=== PATIENT | female | born 1990 | race Caucasian/White ===

== ENCOUNTER 2016-12-15 01:09 | Inpatient (IN) | payer MEDICAID ==
[2016-12-15] MEDS ORDERED: LIDOCAINE 1% INJ-PF (10 MG/ML) 30 ML SDV ONE (01:50)
[2016-12-15] MEDS ORDERED: MISOPROSTOL 0.2 MG TABLET ONE (01:50)
[2016-12-15] MEDS ORDERED: OXYTOCIN/NORMAL SALINE 20 UNIT/1,000 ML RTUINJ ONE (01:50)
[2016-12-15 02:10] LABS: ABSOLUTE EOSINOPHILS # (AUTO) 0.1 10^3/uL (0.0-0.6); ABSOLUTE LYMPHOCYTES (AUTO) 2.1 10^3/uL (0.5-4.7); ABSOLUTE MONOCYTES (AUTO) 1.1 10^3/uL (0.1-1.4); ABSOLUTE NEUT (AUTO) 5.6 10^3/uL (1.7-8.2); BASOPHILS % (AUTO) 0.3 % (0-2); EOSINOPHILS % (AUTO) 1.6 % (0-6); HEMOGLOBIN 11.1 g/dL (12.0-15.5); HGB HCT DIFFERENCE 1.3; LYMPHOCYTES % (AUTO) 23.3 % (13-45); MEAN CORPUSCULAR HEMOGLOBIN 29.4 pg (27.0-33.4); MEAN CORPUSCULAR HGB CONC 34.7 g/dL (32.0-36.0); MEAN CORPUSCULAR VOLUME 85 fl (80-97); MONOCYTES % (AUTO) 12.4 % (3-13); RED BLOOD COUNT 3.78 10^6/uL (3.72-5.28); RED CELL DISTRIBUTION WIDTH 15.1 % (11.5-14.0); SEGMENTED NEUTROPHILS % (AUTO) 62.4 % (42-78)
[2016-12-15] MEDS ORDERED: MAGNESIUM HYDROXIDE SUSP 30 ML UDCUP PO PRN (02:14)
[2016-12-15] MEDS ORDERED: PROMETHAZINE HCL INJ 25 MG/1 ML VIAL IV PRN (02:14)
[2016-12-15] MEDS ORDERED: OXYTOCIN/NORMAL SALINE 20 UNIT/1,000 ML RTUINJ IV PRN (02:14)
[2016-12-15] MEDS ORDERED: GLYCERIN/WITCH HAZEL LEAF 1 EACH MED..PAD TP PRN (02:14)
[2016-12-15] MEDS ORDERED: BENZOCAINE/MENTHOL AEROSOL SPRAY 56 ML TOP PRN (02:14)
[2016-12-15] MEDS ORDERED: ACETAMINOPHEN 650 MG SUPP.RECT PR PRN (02:14)
[2016-12-15] MEDS ORDERED: ZOLPIDEM TARTRATE 5 MG TABLET PO PRN (02:14)
[2016-12-15] MEDS ORDERED: DIBUCAINE 1% OINTMENT 28 GM TP PRN (02:14)
[2016-12-15] MEDS ORDERED: PSEUDOEPHEDRINE HCL 30 MG TABLET PO PRN (02:14)
[2016-12-15] MEDS ORDERED: DIPH/PERTUSS(ACELL)/TETANUS VAC/PF 0.5 ML SYR (>=10YO) IM PRN (02:14)
[2016-12-15] MEDS ORDERED: DIPHENHYDRAMINE HCL 25 MG CAPSULE PO PRN (02:14)
[2016-12-15] MEDS ORDERED: NA PHOS,M-B/NA PHOS,DI-BA (ADULT) 133 ML ENEMA PR PRN (02:14)
[2016-12-15] MEDS ORDERED: PROMETHAZINE HCL 25 MG SUPP.RECT PR PRN (02:14)
[2016-12-15] MEDS ORDERED: ACETAMINOPHEN WITH CODEINE #3 TABLET PO PRN ×2 (02:14)
[2016-12-15] MEDS ORDERED: MEASLES,MUMPS&RUBELLA VACC/PF 0.5 ML VIAL SUBCUT PRN (02:14)
[2016-12-15] MEDS ORDERED: PROMETHAZINE HCL 25 MG TABLET PO PRN (02:14)
[2016-12-15 02:34] LABS: URINE BARBITURATES SCREEN NEGATIVE; URINE METHADONE SCREEN NEGATIVE; URINE OPIATES LOW NEGATIVE; URINE PHENCYCLIDINE SCREEN NEGATIVE
[2016-12-15] MEDS ORDERED: IBUPROFEN 800 MG TABLET ONE ×2 (02:46→06:11)
--- NOTE | 2016-12-15 04:08 | Admission Physical ---
Datetime Report Generated by CPN: 12/15/2016 04:08 CURRENT ADMISSION Chief Complaint: Uterine Contractions Indication for Induction: Not Applicable Admit Plan: Admit to Unit; Initiate Labor Protocol ALLERGIES Medication Allergies: No Medication Allergies: No Known Drug Allergies (06/04/2015) Latex: No Latex Allergies OBSTETRICAL HISTORY EDC: 12/13/2016 00:00 : 3 Para: 2 Term: 2 : 0 SAB: 0 IAB: 0 Livin Gestational Diabetes: No Rh Sensitization: No Incompetent Cervix: No YOSEF: No Infertility: No ART Treatment: No Uterine Anomaly: No IUGR: No Hx Previous C/S: No Macrosomia: No Hx Loss/Stillborn: No PIH: No Hx : No Placenta Previa/Abruption: No Depression/PP Depression: No PTL/PROM: No Post Hemorrhage: No Current Procedures: Ultrasound Obstetrical History Comments: 2013 37.5 weeks 2015 40.5 weeks 2016 current SEE RECORDS Alcohol: No Marijuana : No Cocaine: No Other Illicit Drugs: No Cigarettes: Never Smoker. [id number] MEDICAL HISTORY Diabetes: No Blood Transfusion: No Pulmonary Disease (Asthma, TB): No Breast Disease: No Hypertension: No Canoe Inspector Final Surgery: No Heart Disease: No Hosp/Surgery: No Autoimmune Disorder: No Anesthetic Complications: No Kidney Disease: No Abnormal Pap Smear: No Neuro/Epilepsy: No Psychiatric Disorders: No Other Medical Diseases: No Hepatitis/Liver Disease: No Significant Family History: No Varicosities/Phlebitis: No Trauma/Violence : No Thyroid Dysfunction: No INFECTIOUS HISTORY Gonorrhea: No Genital Herpes: No Chlamydia: No Tuberculosis: No Syphilis: No Hepatitis: No HIV/AIDS Exposure: No Rash or Viral Illness: No HPV: No PHYSICAL EXAM General: Normal HEENT: Normal Neurologic: Normal Thyroid: Normal Heart: Normal Lungs: Normal Breast: Normal Back: Normal Abdomen: Normal Genitourinary Exam: Normal Extremities: Normal DTRs: Normal Pelvic Type: Adequate Vital Signs: Reviewed VAGINAL EXAM Dilatation: 8 Effacement: 100 Station: -1 MEMBRANES Pooling: Positive Membranes: Ruptured Amniotic Fluid Color: Meconium, Heavy FETUS A EGA: 40.2 Monitoring: External US FHR- Baseline: 130 Variability: Moderate 6-25bpm Accelerations: 15X15 Decelerations: None FHR Category: Category I Estimated Weight (gm): 3600 Presentation: Vertex PLANS FOR LABOR AND DELIVERY Labor and Delivery: None Pain Management: Epidural Feeding Preference: Breast Benefit of Breast Feed Discussed: Yes Circumcision: N/A INFORMED CONSENT Signature: with User ID: [email or web address]
--- NOTE | 2016-12-15 04:24 | Delivery Summary ---
Del Sum A-C Datetime Report Generated by CPN: 12/15/2016 04:24 DELIVERY PERSONNEL DELIVERY PERSONNEL: [id number] Delivery Doctor:: Anastacia Coon MD Labor and Delivery Nurse:: Usha Whitaker RNgeriatric nurse assistant Nurse:: Alexandria Cartagena RN General Maintenance Engineer/TANK CLEANER: Gabi Blum, TANK CLEANER MATERNAL INFORMATION Delivery Anesthesia: None Medications After Delivery: Pitocin Bolus-Please Comment Meds After Delivery Comment: Pitocin 20 Units/1000ml NSS Estimated Blood Loss (ml): 200 Maternal Complications: Precipitous Labor (<3hrs) Provider Comments: precipitous delivery within minutes of arrival to Labor Unit. LABOR SUMMARY EDC: 12/13/2016 00:00 Attempted: No Labor Anesthesia: None LABOR INFORMATION Reason for Induction: Not Applicable Onset of Labor: 12/15/2016 01:27 Complete Dilatation: 12/15/2016 01:54 Oxytocin: N/A Group B Beta Strep: negative Antibiotics # of Doses: N/A Antibiotics Time of Last Dose: N/A Name of Antibiotic Given: N/A Steroids Given: None Reason Steroids Not Administered: Not Applicable MEMBRANES Membranes Rupture Method: Spontaneous Rupture of Membranes: 12/15/2016 01:45 Length of Rupture (hr): 0.17 Amniotic Fluid Color: Moderate Meconium Amniotic Fluid Amount: Moderate Amniotic Fluid Odor: Normal STAGES OF LABOR Stage 1 hr: 0 Stage 1 min: 27 Stage 2 hr: 0 Stage 2 min: 1 Stage 3 hr: 0 Stage 3 min: 4 Total Time in Labor hr: 0 Total Time in Labor min: 32 VAGINAL DELIVERY Episiotomy: None Laceration Extension: N/A Laceration Type: None Laceration Repair: Not Applicable BABY A INFORMATION Infant Delivery Date/Time: 12/15/2016 01:55 Method of Delivery: Vaginal Born in Route : No : N/A Forceps: N/A Vacuum Extraction: N/A Shoulder Dystocia : No PRESENTATION/POSITION BABY A Presentation: Cephalic Cephalic Presentation: Vertex Breech Presentation: N/A PLACENTA INFORMATION BABY A Placenta Delivery Time : 12/15/2016 01:59 Placenta Method of Delivery: Spontaneous Placenta Status: Delivered SCORES BABY A Heart Rate 1 min: >100 bpm Resp Effort 1 min: Good Cry Reflex Irritability 1 min: Cough or Sneeze or Pulls Away Muscle Tone 1 min: Active Motion Color 1 min: Blue/Pale Resuscitation Effort 1 min: Tactile Stimulation SCORE 1 MIN: 8 Heart Rate 5 min: >100 bpm Resp Effort 5 min: Good Cry Reflex Irritability 5 min: Cough or Sneeze or Pulls Away Muscle Tone 5 min: Active Motion Color 5 min: Body [place], Extremities Blue Resuscitation Effort 5 min: Tactile Stimulation SCORE 5 MIN: 9 INFANT INFORMATION BABY A Gestational Age at Delivery: 40.2 Gestational Status: Full Term- 39- 40.6 Weeks Outcome : Liveborn Infant Condition : Stable Infant Sex: Female IDENTIFICATION BABY A Verification Date/Time: 12/15/2016 02:05 ID Band Number: [id number] Mother's Name Verified: Yes RN Verifying Infant: R IRENE SanchezC Additional Verifying Personnel: Bakari Limon RN WEIGHT/LENGTH BABY A Infant Birthweight (gm): 3550 Infant Weight (lb): 7 Infant Weight (oz): 13 Infant Length (in): 20.00 Infant Length (cm): 50.80 CORD INFORMATION BABY A No. Cord Vessels: 3 Nuchal Cord : N/A True Knot: 1 Cord Blood Taken: Yes-For Eval (Mom's Blood Type - or O+) Suction: None ASSESSMENT BABY A Complications: Meconium Physical Findings at Delivery: Within Normal Limits Skin to Skin: Yes Skin to Skin Time (min): 60 SIGNATURES Signature: with User ID: Austen
[2016-12-15] MEDS: IBUPROFEN 800 MG TABLET PO SCH ×3 (06:16→22:53)
[2016-12-15] MEDS: PRENATAL VITAMIN W-O CA NO5/FE FUMARATE/FA CAPSULE PO SCH (09:45)
[2016-12-15] MEDS: SENNOSIDES/DOCUSATE 8.6-50 MG 1 EACH TABLET PO SCH (09:45)
[2016-12-15] MEDS: DOCUSATE SODIUM 100 MG CAPSULE PO SCH ×2 (09:45→17:16)
[2016-12-15] MEDS: FAMOTIDINE 20 MG TABLET PO SCH ×2 (09:46→23:08)
[2016-12-15] MEDS: FERROUS SULFATE 325 MG TABLET PO SCH ×2 (09:46→17:16)
--- NOTE | 2016-12-15 11:37 | PDOC PROGRESS REPORT ---
Subjective-OB Subjective: Post Delivery Day: 26 year old. Denies any needs at this time. Pt reports light bleeding, regular diet, voiding without difficulty. She has no complaints. Physical Exam (OB) Vital Signs: Temp Pulse Resp BP Pulse Ox 99.3 F 58 L 15 106/64 100 12/15/16 07:51 12/15/16 07:51 12/15/16 07:51 12/15/16 07:51 12/15/16 07:51 Intake & Output 12/14/16 12/15/16 12/16/16 06:59 06:59 06:59 Weight 73.1 kg - Lochia Lochia Amount: Small 10-25 ml Lochia Color: Rubra/Red - Abdomen Description: Tender, Soft Hernia Present: No Fundal Description: Firm, Midline Fundal Height: u/u - u/2 Objective-Diagnostic Laboratory: 12/15/16 01:54 12/15/16 12/15/16 01:54 01:54 WBC 9.0 RBC 3.78 Hgb 11.1 L Hct 32.0 L MCV 85 MCH 29.4 MCHC 34.7 RDW 15.1 H Plt Count 133 L Seg Neutrophils % 62.4 Lymphocytes % 23.3 Monocytes % 12.4 Eosinophils % 1.6 Basophils % 0.3 Absolute Neutrophils 5.6 Absolute Lymphocytes 2.1 Absolute Monocytes 1.1 Absolute Eosinophils 0.1 Absolute Basophils 0.0 Blood Type A NEGATIVE Antibody Screen POSITIVE Assessment and Plan(PN) - Assessment and Plan (1) Delivery normal Is this a current diagnosis for this admission?: Yes - Time Spent with Patient Time with patient: Less than 15 minutes Medications reviewed and adjusted accordingly: Yes - Disposition Anticipated Discharge: Home Within: within 24 hours
[2016-12-16] MEDS: IBUPROFEN 800 MG TABLET PO SCH ×2 (05:44→13:53)
[2016-12-16 08:12] LABS: HEMATOCRIT 27.6 % (36.0-47.0); HEMOGLOBIN 9.6 g/dL (12.0-15.5); HGB HCT DIFFERENCE 1.2; MEAN CORPUSCULAR HEMOGLOBIN 29.8 pg (27.0-33.4); MEAN CORPUSCULAR HGB CONC 34.8 g/dL (32.0-36.0); MEAN CORPUSCULAR VOLUME 85 fl (80-97); RED BLOOD COUNT 3.23 10^6/uL (3.72-5.28); RED CELL DISTRIBUTION WIDTH 15.1 % (11.5-14.0); WHITE BLOOD COUNT 8.1 10^3/uL (4.0-10.5)
--- NOTE | 2016-12-16 08:43 | PDOC PROGRESS REPORT ---
Subjective-OB Subjective: Post Delivery Day: 26 year old. Denies any needs at this time Doing well, ready to go home, no c/o, Physical Exam (OB) Vital Signs: Temp Pulse Resp BP Pulse Ox 97.5 F 64 18 118/58 L 100 12/15/16 19:34 12/15/16 19:34 12/15/16 19:34 12/15/16 19:34 12/15/16 19:34 Intake & Output 12/15/16 12/16/16 12/17/16 06:59 06:59 06:59 Weight 73.1 kg - PIH/Pre-Eclampsia DTR's: 2 + Clonus: Negative Headache: Absent Epigastric Pain: No Visual Changes: No - Lochia Lochia Amount: Small 10-25 ml Lochia Color: Rubra/Red - Abdomen Description: Soft, Round Hernia Present: No Fundal Description: Firm, Midline Fundal Height: u/u - u/2 Objective-Diagnostic Laboratory: 12/16/16 07:23 12/16/16 07:23 WBC 8.1 RBC 3.23 L Hgb 9.6 L Hct 27.6 L MCV 85 MCH 29.8 MCHC 34.8 RDW 15.1 H Plt Count 112 L Assessment and Plan(PN) - Assessment and Plan (1) Anemia Qualifiers: Anemia type: iron deficiency Is this a current diagnosis for this admission?: Yes (2) Delivery normal Is this a current diagnosis for this admission?: Yes - Time Spent with Patient Time with patient: Less than 15 minutes Medications reviewed and adjusted accordingly: Yes - Disposition Anticipated Discharge: Home Within: Other - home today
--- NOTE | 2016-12-16 08:46 | PDOC DISCHARGE SUMMARY ---
Final Diagnosis Discharge Date: 12/16/16 - Final Diagnosis (1) Anemia Is this a current diagnosis for this admission?: Yes Discharge Data - Discharge Medication Home Medications: Vits96/Iron Fum/Folic [ Tablet] 1 tab PO DAILY 08/29/13 Gestational Age: 40.2 Reason(s) for Admission: Onset of Labor Intrapartum Procedure(s): Spontaneous Vaginal Delivery - Data Baby 1 Female at 1 minute: 8 at 5 minutes: 9 Weight: 3.544 kg Home with Mother: Yes Complications: No - Diagnosis Test Laboratory: Temp Pulse Resp BP Pulse Ox 97.5 F 64 18 118/58 L 100 12/15/16 19:34 12/15/16 19:34 12/15/16 19:34 12/15/16 19:34 12/15/16 19:34 12/15/16 12/15/16 12/16/16 01:21 01:54 07:23 RBC 3.78 3.23 L Hgb 11.1 L 9.6 L Hct 32.0 L 27.6 L Urine Opiates Screen NEGATIVE - Discharge information/Instructions Discharge Activity: Activity As Tolerated, No Lifting Over 10 Pounds, No Lifting /Push/Pulling, Pelvic Rest Discharge Diet: As Tolerated, Regular Disposition: HOME, SELF-CARE Follow up with: [facility] in: 4, Weeks
[2016-12-16 09:12] VITALS: BP 111/77
[2016-12-16] MEDS: DOCUSATE SODIUM 100 MG CAPSULE PO SCH ×2 (10:16→17:12)
[2016-12-16] MEDS: FERROUS SULFATE 325 MG TABLET PO SCH ×2 (10:16→17:12)
[2016-12-16] MEDS: SENNOSIDES/DOCUSATE 8.6-50 MG 1 EACH TABLET PO SCH (10:16)
[2016-12-16] MEDS: PRENATAL VITAMIN W-O CA NO5/FE FUMARATE/FA CAPSULE PO SCH (10:16)
[2016-12-16] MEDS: FAMOTIDINE 20 MG TABLET PO SCH (10:17)
== END 2016-12-16 18:46 | disposition home or self-care (01) | DRG 775 ==
LOC: LC 01:09 → LR 01:57 → 2S 04:06
PROVIDERS: ADMIT Obstetrics & Gynecology; ATTEND Obstetrics & Gynecology
PROC: 10E0XZZ Delivery of Products of Conception, External Approach (ICD-10-PCS; principal; 2016-12-15)
PROC: 4A1HXCZ Monitoring of Products of Conception, Cardiac Rate, External Approach (ICD-10-PCS; 2016-12-15)
DX: O77.0 Labor and delivery complicated by meconium in amniotic fluid (principal); O62.3 Precipitate labor; O99.02 Anemia complicating childbirth; D50.9 Iron deficiency anemia, unspecified; Z3A.40 40 weeks gestation of pregnancy; Z37.0 Single live birth
CPT/HCPCS: 36415; 80307; 85025; 85027; 86592; 86850; 86870; 86900; 86901; J2590; J3490

== ENCOUNTER 2020-02-24 20:10 | Inpatient (IN) | payer MEDICAID ==
[2020-02-24 21:00] LABS: APPEARANCE,URINE SLIGHTLY-CLOUDY; BILIRUBIN,URINE NEGATIVE (NEGATIVE); COLOR,URINE YELLOW; GLUCOSE, URINE NEGATIVE (NEGATIVE); KETONES,URINE TRACE mg/dL (NEGATIVE); LEUKOCYTE ESTERASE,URINE TRACE (NEGATIVE); NITRITE,URINE NEGATIVE (NEGATIVE); PROTEIN,URINE 30 mg/dL (NEGATIVE); URINE SPECIFIC GRAVITY 1.012; UROBILINOGEN,URINE NEGATIVE mg/dL (<2.0)
[2020-02-24 21:31] LABS: URINE AMPHETAMINES SCREEN NEGATIVE; URINE BARBITURATES SCREEN NEGATIVE; URINE BENZODIAZEPINES SCREEN NEGATIVE; URINE COCAINE SCREEN NEGATIVE; URINE MARIJUANA (THC) SCREEN NEGATIVE; URINE METHADONE SCREEN NEGATIVE; URINE PHENCYCLIDINE SCREEN NEGATIVE
[2020-02-24] MEDS ORDERED: RINGERS SOLUTION,LACTATED 1,000 ML IV PRN (22:49)
[2020-02-24] MEDS ORDERED: OXYTOCIN 10 UNIT/ML VIAL ONE (22:54)
[2020-02-24] MEDS ORDERED: LIDOCAINE 1% INJ-PF (10 MG/ML) 30 ML SDV ONE (22:55)
[2020-02-24] MEDS ORDERED: OXYTOCIN/0.9 % SODIUM CHLORIDE 30 UNIT/500 ML RTUINJ ONE (22:55)
[2020-02-24] MEDS ORDERED: MISOPROSTOL 0.2 MG TABLET ONE (22:55)
[2020-02-24 23:28] LABS: ABSOLUTE EOSINOPHILS # (AUTO) 0.1 10^3/uL (0.0-0.6); ABSOLUTE LYMPHOCYTES (AUTO) 1.4 10^3/uL (0.5-4.7); ABSOLUTE MONOCYTES (AUTO) 0.6 10^3/uL (0.1-1.4); ABSOLUTE NEUT (AUTO) 4.1 10^3/uL (1.7-8.2); BASOPHILS % (AUTO) 0.3 % (0-2); EOSINOPHILS % (AUTO) 0.9 % (0-6); HEMATOCRIT 31.4 % (36.0-47.0); HEMOGLOBIN 10.9 g/dL (12.0-15.5); LYMPHOCYTES % (AUTO) 22.9 % (13-45); MEAN CORPUSCULAR HEMOGLOBIN 31.5 pg (27.0-33.4); MEAN CORPUSCULAR HGB CONC 34.9 g/dL (32.0-36.0); MEAN CORPUSCULAR VOLUME 90 fl (80-97); MONOCYTES % (AUTO) 9.6 % (3-13); PLATELET COUNT 130 10^3/uL (150-450); RED BLOOD COUNT 3.47 10^6/uL (3.72-5.28); RED CELL DISTRIBUTION WIDTH 15.7 % (11.5-14.0); SEGMENTED NEUTROPHILS % (AUTO) 66.3 % (42-78); TOTAL CELLS COUNTED % (AUTO) 100 %; WHITE BLOOD COUNT 6.1 10^3/uL (4.0-10.5)
--- NOTE | 2020-02-24 23:59 | Admission Physical ---
Datetime Report Generated by CPN: 02/24/2020 23:59 CURRENT ADMISSION Chief Complaint: Uterine Contractions Indication for Induction: Not Applicable Admit Impression : Term, Intrauterine ; Active Labor Admit Plan: Admit to Unit; Initiate Labor Protocol ALLERGIES Medication Allergies: No Medication Allergies: No Known Drug Allergies (02/24/2020) Latex: No Latex Allergies OBSTETRICAL HISTORY EDC: 02/26/2020 00:00 : 4 Para: 3 Term: 3 : 0 SAB: 0 IAB: 0 Ectopic: 0 Livin Cesareans: 0 VBACs: 0 Multiple Births: 0 SEE RECORDS Alcohol: No Marijuana : No Cocaine: No Other Illicit Drugs: No Cigarettes: Never Smoker. [id number] PHYSICAL EXAM General: Normal HEENT: Normal Neurologic: Normal Thyroid: Normal Heart: Normal Lungs: Normal Breast: Normal Back: Normal Abdomen: Normal Genitourinary Exam: Normal Extremities: Normal DTRs: Normal Pelvic Type: Adequate Vital Signs: Reviewed VAGINAL EXAM Dilatation: 5 Effacement: 50 Station: -2 MEMBRANES Pooling: Negative Membranes: Intact FETUS A EGA: 39.5 Monitoring: External US FHR- Baseline: 130 Variability: Moderate 6-25bpm Accelerations: 15X15 Decelerations: None FHR Category: Category I Estimated Weight (gm): 3900 Presentation: Vertex PLANS FOR LABOR AND DELIVERY Benefit of Breast Feed Discussed: Yes Circumcision: Yes INFORMED CONSENT Signature: with User ID: Austen
[2020-02-25] MEDS ORDERED: EPHEDRINE SULFATE INJ 50 MG/1 ML AMPULE ONE (00:13)
[2020-02-25] MEDS ORDERED: ROPIVACAINE HCL 0.2% INJ/PF (2 MG/ML) 20 ML SDV ONE (00:13)
[2020-02-25] MEDS ORDERED: FENTANYL/BUPIVACAINE/NS/PF 300 MCG/150 ML RTUINJ EPI ONE (00:13)
[2020-02-25] MEDS ORDERED: OXYTOCIN/0.9 % SODIUM CHLORIDE 30 UNIT/500 ML RTUINJ IV PRN ×2 (03:58→06:38)
[2020-02-25] MEDS ORDERED: PROMETHAZINE HCL 25 MG SUPP.RECT PR PRN (06:38)
[2020-02-25] MEDS ORDERED: PSEUDOEPHEDRINE HCL 30 MG TABLET PO PRN (06:38)
[2020-02-25] MEDS ORDERED: ACETAMINOPHEN 650 MG SUPP.RECT PR PRN (06:38)
[2020-02-25] MEDS ORDERED: ACETAMINOPHEN WITH CODEINE #3 TABLET PO PRN ×2 (06:38)
[2020-02-25] MEDS ORDERED: DIBUCAINE 1% OINTMENT 28 GM TP PRN (06:38)
[2020-02-25] MEDS ORDERED: MAGNESIUM HYDROXIDE SUSP 30 ML UDCUP PO PRN (06:38)
[2020-02-25] MEDS ORDERED: DIPHENHYDRAMINE HCL 25 MG CAPSULE PO PRN (06:38)
[2020-02-25] MEDS ORDERED: BENZOCAINE/MENTHOL AEROSOL SPRAY 56 ML TOP PRN (06:38)
[2020-02-25] MEDS ORDERED: ZOLPIDEM TARTRATE 5 MG TABLET PO PRN (06:38)
[2020-02-25] MEDS ORDERED: GLYCERIN/WITCH HAZEL LEAF 1 EACH MED..WIPE TP PRN (06:38)
[2020-02-25] MEDS ORDERED: MEASLES,MUMPS&RUBELLA VACC/PF 0.5 ML VIAL SUBCUT PRN (06:38)
[2020-02-25] MEDS ORDERED: NA PHOS,M-B/NA PHOS,DI-BA (ADULT) 133 ML ENEMA PR PRN (06:38)
[2020-02-25] MEDS ORDERED: PROMETHAZINE HCL INJ 25 MG/1 ML VIAL IV PRN (06:38)
[2020-02-25] MEDS ORDERED: PROMETHAZINE HCL 25 MG TABLET PO PRN (06:38)
[2020-02-25] MEDS ORDERED: DIPH/PERTUSS(ACELL)/TETANUS VAC/PF 0.5 ML SYR (>=10YO) IM PRN (06:38)
[2020-02-25] MEDS ORDERED: ONDANSETRON HCL INJ/PF 4 MG/2 ML SDV IV ONE (07:02)
[2020-02-25] MEDS ORDERED: ONDANSETRON HCL INJ/PF 4 MG/2 ML SDV ONE (07:03)
--- NOTE | 2020-02-25 07:20 | Delivery Summary ---
Del Sum A-C Datetime Report Generated by CPN: 02/25/2020 07:20 DELIVERY PERSONNEL DELIVERY PERSONNEL: [id number] Delivery Doctor:: Anastacia Coon MD Labor and Delivery Nurse:: Sanjuana Cramer RNlunchroom monitor Nurse:: Mariiaoctavio Jassoclarisa, RNC Floor Press Operator/METHODS SPECIALIST ENGINEER: Yue Klaudia, ST MATERNAL INFORMATION Delivery Anesthesia: Epidural Medications After Delivery: Pitocin Bolus-Please Comment Delivery QBL: 100 Maternal Complications: None LABOR SUMMARY EDC: 02/26/2020 00:00 No. Babies in Womb: 1 Attempted: No Labor Anesthesia: Epidural LABOR INFORMATION Reason for Induction: Not Applicable Onset of Labor: 02/24/2020 22:33 Complete Dilatation: 02/25/2020 06:00 Oxytocin: Augmentation Group B Beta Strep: Negative Steroids Given: None Reason Steroids Not Administered: Not Applicable MEMBRANES Membranes Rupture Method: Artificial Rupture of Membranes: 02/25/2020 00:05 Length of Rupture (hr): 6.00 Amniotic Fluid Color: Clear Amniotic Fluid Amount: Moderate Amniotic Fluid Odor: None STAGES OF LABOR Stage 1 hr: 7 Stage 1 min: 27 Stage 2 hr: 0 Stage 2 min: 5 Stage 3 hr: 0 Stage 3 min: 3 Total Time in Labor hr: 7 Total Time in Labor min: 35 VAGINAL DELIVERY Episiotomy: None Laceration #1: None Laceration Extension #1: N/A Laceration Repair: Not Applicable Sponge Count Correct: N/A Sharps Count Correct: N/A CSECTION DELIVERY Primary Indication: N/A Secondary Indication: N/A CSection Incidence: N/A Labor: N/A Elective: N/A CSection Incision: N/A BABY A INFORMATION Infant Delivery Date/Time: 02/25/2020 06:05 Method of Delivery: Vaginal Nurse Controlled Delivery: No Born in Route : No : N/A Forceps: N/A Vacuum Extraction: N/A Shoulder Dystocia : No PRESENTATION/POSITION BABY A Presentation: Cephalic Cephalic Presentation: Vertex Vertex Position: Left Occipital Transverse Breech Presentation: N/A PLACENTA INFORMATION BABY A Placenta Delivery Time : 02/25/2020 06:08 Placenta Method of Delivery: Spontaneous Placenta Status: Delivered SCORES BABY A Heart Rate 1 min: >100 bpm Resp Effort 1 min: Good Cry Reflex Irritability 1 min: Cough or Sneeze or Pulls Away Muscle Tone 1 min: Active Motion Color 1 min: Blue/Pale Resuscitation Effort 1 min: Tactile Stimulation SCORE 1 MIN: 8 Heart Rate 5 min: >100 bpm Resp Effort 5 min: Good Cry Reflex Irritability 5 min: Cough or Sneeze or Pulls Away Muscle Tone 5 min: Active Motion Color 5 min: Body [place], Extremities Blue Resuscitation Effort 5 min: Tactile Stimulation SCORE 5 MIN: 9 INFANT INFORMATION BABY A Gestational Age at Delivery: 39.6 Gestational Status: Full Term- 39- 40.6 Weeks Outcome : Liveborn Infant Condition : Stable Sex: Male IDENTIFICATION BABY A Verification Date/Time: 02/25/2020 07:00 ID Band Number: [id number] Mother's Name Verified: Yes RN Verifying : H. Fright WEIGHT/LENGTH BABY A Birthweight (gm): 3520 Infant Weight (lb): 7 Weight (oz): 12 Length (in): 21.00 Infant Length (cm): 53.34 CORD INFORMATION BABY A No. Cord Vessels: 3 Nuchal Cord : Around Neck x1, Loose Cord Blood Taken: Yes-For Eval (Mom's Blood Type - or O+) Suction: None ASSESSMENT BABY A Complications: None Physical Findings at Delivery: Within Normal Limits Infant Respirations: Appears Normal Skin to Skin: Yes Louver Door Assembler/ALS Called : No Infant Care By: D Bellavance RN Transferred To: Remains with Mother BABY B INFORMATION : N/A SIGNATURES Signature: with User ID: Austen
--- NOTE | 2020-02-25 07:20 | Birth Certificate Data ---
Cert Data Datetime Report Generated by CPN: 02/25/2020 07:20 CERTIFICATE DATA Delivery Provider: Anastacia Coon MD (02/24/2020 20:37:LETITIA Nguyen) 47a. Care: Yes (02/24/2020 20:37:Sanjuana Cramer RN) 48a. Number of Prev Live Births: 3 (02/24/2020 20:37:Sanjuana Cramer RN) 48b. Now Livin (02/24/2020 20:37:Sanjuana Cramer RN) 48c. Live Births Now : 0 (02/24/2020 20:37:QS system process) 48d. Date of Last Live : 12/15/2016 00:00 (02/24/2020 20:37:Sanjuana Cramer RN) 48e. Losses: 0 (02/24/2020 20:37:Sanjuana Cramer RN) RISK FACTORS IN THIS 49a. Diabetes: No (02/24/2020 20:37:Sanjuana Cramer RN) 49b. Hypertension: No (02/24/2020 20:37:Sanjuana Cramer RN) 49c. Previous Births: 0 (02/24/2020 20:37:Sanjuana Cramer RN) 49d. Stillborns: No (02/24/2020 20:37:Sanjuana Cramer RN) 49d. IUGR: No (02/24/2020 20:37:Sanjuana Cramer RN) 49e. Infertility Treatment: No (02/24/2020 20:37:Sanjuana Cramer RN) 49f. Previous Cesareans: 0 (02/24/2020 20:37:Sanjuana Cramer RN) Mother's Height 50b. Height Inches: 61 (02/24/2020 20:43:QS system process) Mother's Weight 51b. Weight at Delivery (lbs): 172 (02/24/2020 20:43:QS system process) 52. Dt Last Normal Menses Began: 05/22/2019 00:00 (02/24/2020 20:37:Sanjuana Cramer RN) Infections Present/Treated 53a. Gonorrhea: No (02/24/2020 20:37:Sanjuana Cramer RN) Results this Hospital Visit : Negative (02/24/2020 20:37:Sanjuana Cramer RN) 53b. Syphilis: No (02/24/2020 20:37:Sanjuana Cramer RN) 53c. Chlamydia: No (02/24/2020 20:37:Sanjuana Cramer RN) Results this Hospital Visit: Negative (02/24/2020 20:37:Sanjuana Cramer RN) 53d. Hepatitis B: No (02/24/2020 20:37:Sanjuana Cramer RN) Results this Hospital Visit: Negative (02/24/2020 20:37:Sanjuana Cramer RN) 53e. Hepatitis C: Negative (02/24/2020 20:37:Sanjuana Cramer RN) 53h. Mother Tested for HBsAG: Yes (02/24/2020 20:37:Sanjuana Cramer RN) 53i. Date Tested: 12/02/2019 00:00 (02/24/2020 20:37:Sanjuana Cramer RN) 53j. Test Result: Negative (02/24/2020 20:37:Sanjuana Cramer RN) Cigarette Smoking Cigarette Smoking: Never Smoker. [id number] (02/24/2020 20:37:Sanjuana Cramer RN) 55a. 3 Months Before Preg - Ci (02/24/2020 20:37:Sanjuana Cramer RN) 55a. Packs: 0 (02/24/2020 20:37:Sanjuana Cramer RN) 55b. 1st Trimester of Preg- Ci (02/24/2020 20:37:Sanjuana Cramer RN) 55b. Packs: 0 (02/24/2020 20:37:aSnjuana Cramer RN) 55c. 2nd Trimester of Preg- Ci (02/24/2020 20:37:Sanjuana Cramer RN) 55c. Packs: 0 (02/24/2020 20:37:Sanjuana Cramer RN) 55d. 3rd Trimester of Preg- Ci (02/24/2020 20:37:Sanjuana Cramer RN) 55d. Packs: 0 (02/24/2020 20:37:Sanjuana Cramer RN) Onset of Labor 56a. PROM >12 Hrs: 6.00 (02/24/2020 20:37:QS system process) 56b. Precipitous Labor <3 Hrs: 7 (02/24/2020 20:37:QS system process) 56c. Prolonged Labor > 20 Hrs: 7 (02/24/2020 20:37:QS system process) 57a. Induction of Labor: Augmentation (02/24/2020 20:37:LETITIA Nguyen) 57c. Non-Vertex Presentation A: Vertex (02/24/2020 20:37:LETITIA Nguyen) 57d. Steroids - Lung Mat: None (02/24/2020 20:37:LETITIA Nguyen) 57d. Steroids - Lung Mat: Not Applicable (02/24/2020 20:37:LETITIA Nguyen) 57f. Mat [place] or Temp >100.4: 98.0 (02/24/2020 20:37:LETITIA Nguyen) 57g. Moderate/Heavy Meconium: Clear (02/25/2020 00:05:Sanjuana Cramer RN) 57h. Intolerance of Labor: N/A (02/24/2020 20:37:Sanjuana Cramer RN) : N/A (02/24/2020 20:37:Sanjuana Cramer RN) 57i. Epidural/Spinal Anesthesia: Epidural (02/24/2020 20:37:Mariia Beavers RNC) Method of Delivery 58a. Forceps - Unsuccessful A: N/A (02/24/2020 20:37:LETITIA Nguyen) 58b. Vacuum - Unsuccessful A: N/A (02/24/2020 20:37:Mariia Beavers, RNC) 58c. Presentation at 58c. Presentation at - A : Vertex (02/24/2020 20:37:LETITIA Nguyen) 58c. Presentation at - A : N/A (02/24/2020 20:37:LETITIA Nguyen) 58c. Presentation at - A : Cephalic (02/24/2020 20:30:Sanjuana Cramer RN) Final Route and Method of Del 58d. Baby A Route/Delivery: Vaginal (02/25/2020 06:05:Sanjuana Cramer RN) 58e. Trial of Labor Attempted: No (02/24/2020 20:37:Mariia Bellavance, RNC) 58e. Trial of Labor Attempted A: N/A (02/24/2020 20:37:Mariia Bellavance, RNC) 58e. Trial of Labor Attempted B: N/A (02/24/2020 20:37:Mariia Bellavance, RNC) Maternal Morbidity 59b. 3rd or 4th Degree Lacs: None (02/24/2020 20:37:Mariia Bellavance, RNC) Birthweight Baby A: 3520 (02/24/2020 20:37:Jennifer Kan ) 60a. Pounds : 7 (02/24/2020 20:37:QS system process) 60b. Ounces: 12 (02/24/2020 20:37:QS system process) 61. GA at Delivery Baby A: 39.6 (02/24/2020 20:37:Mariia Beavers [facility]) : Full Term- 39- 40.6 Weeks (02/24/2020 20:37:QS system process) 62a. 5 Minute Baby A: 9 (02/24/2020 20:37:QS system process)
[2020-02-25] MEDS ORDERED: FERROUS SULFATE 325 MG TABLET PO ONE (10:27)
[2020-02-25] MEDS ORDERED: FAMOTIDINE 20 MG TABLET ONE (10:27)
[2020-02-25] MEDS ORDERED: SENNOSIDES/DOCUSATE 8.6-50 MG 1 EACH TABLET ONE (10:27)
[2020-02-25] MEDS ORDERED: DOCUSATE SODIUM 100 MG CAPSULE ONE (10:27)
[2020-02-25] MEDS ORDERED: PRENATAL VITAMIN W DHA CAPSULE PO ONE (10:27)
[2020-02-25] MEDS: FERROUS SULFATE 325 MG TABLET PO SCH ×2 (10:34→18:17)
[2020-02-25] MEDS: FAMOTIDINE 20 MG TABLET PO SCH ×2 (10:34→21:21)
[2020-02-25] MEDS: PRENATAL VITAMIN W DHA CAPSULE PO SCH (10:34)
[2020-02-25] MEDS: DOCUSATE SODIUM 100 MG CAPSULE PO SCH ×2 (10:34→18:18)
[2020-02-25] MEDS: SENNOSIDES/DOCUSATE 8.6-50 MG 1 EACH TABLET PO SCH (10:34)
[2020-02-25] MEDS: IBUPROFEN 800 MG TABLET PO SCH ×2 (13:31→21:20)
[2020-02-26] MEDS: IBUPROFEN 800 MG TABLET PO SCH ×2 (05:52→13:49)
[2020-02-26 07:07] LABS: HEMATOCRIT 29.1 % (36.0-47.0); HEMOGLOBIN 10.1 g/dL (12.0-15.5); MEAN CORPUSCULAR HEMOGLOBIN 31.5 pg (27.0-33.4); MEAN CORPUSCULAR HGB CONC 34.5 g/dL (32.0-36.0); MEAN CORPUSCULAR VOLUME 91 fl (80-97); RED BLOOD COUNT 3.19 10^6/uL (3.72-5.28); RED CELL DISTRIBUTION WIDTH 15.6 % (11.5-14.0); WHITE BLOOD COUNT 7.8 10^3/uL (4.0-10.5)
[2020-02-26 07:44] LABS: PLATELET COUNT 91 10^3/uL (150-450)
[2020-02-26] MEDS: SENNOSIDES/DOCUSATE 8.6-50 MG 1 EACH TABLET PO SCH (10:31)
[2020-02-26] MEDS: DOCUSATE SODIUM 100 MG CAPSULE PO SCH (10:31)
[2020-02-26] MEDS: PRENATAL VITAMIN W DHA CAPSULE PO SCH (10:31)
[2020-02-26] MEDS: FERROUS SULFATE 325 MG TABLET PO SCH (10:31)
[2020-02-26] MEDS: FAMOTIDINE 20 MG TABLET PO SCH (10:37)
--- NOTE | 2020-02-26 11:34 | PDOC DISCHARGE SUMMARY ---
Impression - Admit/DC Date/PCP Admission Date/Primary Care Provider: 02/24/20 22:50 PERRI BARTHOLOMEW MD Discharge Date: 02/26/20 - Discharge Diagnosis (1) Anemia Is this a current diagnosis for this admission?: Yes (2) Delivery normal Is this a current diagnosis for this admission?: Yes (3) Active labor at term Is this a current diagnosis for this admission?: Yes - Additional Information Resuscitation Status: Full Code Discharge Diet: Regular Discharge Activity: Balance Activity w/Rest, Pelvic Rest Referrals: PERRI BARTHOLOMEW MD [Primary Care Provider] - Prescriptions: Ibuprofen [Motrin 800 mg Tablet] 800 mg PO Q8 #60 tablet Home Medications: No.137/Iron/Folic Acd [ Vitamin Tablet] 1 tab PO DAILY 08/29/13 Ibuprofen [Motrin 800 mg Tablet] 800 mg PO Q8 #60 tablet 02/26/20 HPI Gestational Age: 39.5 Reason(s) for Admission: Onset of Labor Procedures: NST Intrapartum Procedure(s): Spontaneous Vaginal Delivery Hospital Course 59. Maternal Morbidity (serious complications experinced by the mother associated with labor and delivery: None of the above Results Laboratory Results: WBC 7.8 10^3/uL (4.0-10.5) 02/26/20 06:23 RBC 3.19 10^6/uL (3.72-5.28) L 02/26/20 06:23 Hgb 10.1 g/dL (12.0-15.5) L 02/26/20 06:23 Hct 29.1 % (36.0-47.0) L 02/26/20 06:23 MCV 91 fl (80-97) 02/26/20 06:23 MCH 31.5 pg (27.0-33.4) 02/26/20 06:23 MCHC 34.5 g/dL (32.0-36.0) 02/26/20 06:23 RDW 15.6 % (11.5-14.0) H 02/26/20 06:23 Plt Count 91 10^3/uL (150-450) L 02/26/20 06:23 Lymph % (Auto) 22.9 % (13-45) 02/24/20 23:05 [place] % (Auto) 9.6 % (3-13) 02/24/20 23:05 Eos % (Auto) 0.9 % (0-6) 02/24/20 23:05 Baso % (Auto) 0.3 % (0-2) 02/24/20 23:05 Absolute Neuts (auto) 4.1 10^3/uL (1.7-8.2) 02/24/20 23:05 Absolute Lymphs (auto) 1.4 10^3/uL (0.5-4.7) 02/24/20 23:05 Absolute Monos (auto) 0.6 10^3/uL (0.1-1.4) 02/24/20 23:05 Absolute Eos (auto) 0.1 10^3/uL (0.0-0.6) 02/24/20 23:05 Absolute Basos (auto) 0.0 10^3/uL (0.0-0.2) 02/24/20 23:05 Seg Neutrophils % 66.3 % (42-78) 02/24/20 23:05 Urine Color YELLOW 02/24/20 20:17 Urine Appearance SLIGHTLY-CLOUDY 02/24/20 20:17 Urine pH 6.0 (5.0-9.0) 02/24/20 20:17 Ur Specific [place] 1.012 02/24/20 20:17 Urine Protein 30 mg/dL (NEGATIVE) H 02/24/20 20:17 Urine Glucose (UA) NEGATIVE mg/dL (NEGATIVE) 02/24/20 20:17 Urine Ketones TRACE mg/dL (NEGATIVE) H 02/24/20 20:17 Urine Blood NEGATIVE (NEGATIVE) 02/24/20 20:17 Urine Nitrite NEGATIVE (NEGATIVE) 02/24/20 20:17 Urine Bilirubin NEGATIVE (NEGATIVE) 02/24/20 20:17 Urine Urobilinogen NEGATIVE mg/dL (<2.0) 02/24/20 20:17 Ur Leukocyte Esterase TRACE (NEGATIVE) H 02/24/20 20:17 Urine Ascorbic Acid NEGATIVE (NEGATIVE) 02/24/20 20:17 Urine Opiates Screen NEGATIVE 02/24/20 20:17 Urine Methadone Screen NEGATIVE 02/24/20 20:17 Ur Barbiturates Screen NEGATIVE 02/24/20 20:17 Ur Phencyclidine Scrn NEGATIVE 02/24/20 20:17 Ur Amphetamines Screen NEGATIVE 02/24/20 20:17 U Benzodiazepines Scrn NEGATIVE 02/24/20 20:17 Urine Cocaine Screen NEGATIVE 02/24/20 20:17 U Marijuana (THC) Screen NEGATIVE 02/24/20 20:17 RPR NONREACTIVE (NONREACTIVE) 02/24/20 23:05 Blood Type A NEGATIVE 02/24/20 23:05 Antibody Screen POSITIVE 02/24/20 23:05 Antibody Identification RHOGAM INDUCED ANTI-D 02/24/20 23:05 Plan Plan of Treatment: f/u at [facility] Time Spent: Less than 30 Minutes
[2020-02-26 13:08] VITALS: BP 128/79
== END 2020-02-26 15:40 | disposition home or self-care (01) | DRG 807 ==
LOC: LC 20:10 → LR 22:50 → 2S 02-25 11:13
PROVIDERS: ADMIT Obstetrics & Gynecology; ATTEND Obstetrics & Gynecology
PROC: 10E0XZZ Delivery of Products of Conception, External Approach (ICD-10-PCS; principal; 2020-02-25)
PROC: 10907ZC Drainage of Amniotic Fluid, Therapeutic from Products of Conception, Via Natural or Artificial Opening (ICD-10-PCS; 2020-02-25)
DX: O99.02 Anemia complicating childbirth (principal); Z37.0 Single live birth; D64.9 Anemia, unspecified; O69.81X0 Labor and delivery complicated by cord around neck, without compression, not applicable or unspecified; Z20.828 Contact with and (suspected) exposure to other viral communicable diseases; Z28.21 Immunization not carried out because of patient refusal; Z3A.39 39 weeks gestation of pregnancy
CPT/HCPCS: 1967; 36415; 80307; 81005; 85025; 85027; 86592; 86850; 86870; 86900; 86901; 94760; J2405; J2590; J2795; J3010; J3490